=== PATIENT | female | born 1970 | race Caucasian/White ===

== ENCOUNTER → 2017-12-04 | Outpatient (CLI) | payer OTHER ==
[~2017-12-04] MED LIST: ADDERALL 20 MG20 M1 PO; FLEXERIL PO; NORCO 5-325 TA1 EACH PO
== END ==
LOC: M.RAD 14:55
DX: M79.675 Pain in left toe(s) (principal)

== ENCOUNTER 2018-04-25 01:10 | Emergency (ER) | payer OTHER ==
[~2018-04-25] VITALS: Ht 167.6 cm; Wt 68.0 kg
[2018-04-25] MEDS ORDERED: ADDERALL 20 MG20 M1 PO (01:20)
[2018-04-25 01:57] LABS: URINE BILIRUBIN NEGATIVE (Negative); URINE BLOOD NEGATIVE (Negative); URINE CLARITY CLEAR; URINE COLOR YELLOW; URINE GLUCOSE-RANDOM NEGATIVE (Negative); URINE KETONES NEGATIVE (Negative); URINE LEUKOCYTES-REFLEX NEGATIVE (Negative); URINE NITRITE-REFLEX NEGATIVE (Negative); URINE PROTEIN NEGATIVE (Negative); URINE SPECIFIC GRAVITY >= 1.030 (1.005-1.030); URINE UROBILINOGEN 0.2 E.U./dl (0.2-1.0)
[2018-04-25] MEDS ORDERED: NORCO 5-325 TA1 EACH PO (02:33)
[2018-04-25] MEDS ORDERED: FLEXERIL PO (02:33)
[2018-04-25 02:51] VITALS: BP 135/69
== END 2018-04-25 02:52 | disposition home or self-care (01) ==
LOC: M.ERS 01:10
PROVIDERS: Emergency Medicine
DX: M62.830 Muscle spasm of back (principal)